=== PATIENT | male | born 1995 | race Two or more races ===

== ENCOUNTER 2018-09-23 14:34 | Observation (INO) | payer OTHER ==
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
[2018-09-23 15:16] LABS: BASOPHILS % (AUTO) 0.7 %; HGB - HEMOGLOBIN 8.2 g/dL (14.0-18.0); MEAN CORPUSCULAR HEMOGLOBIN 28.5 pg (27.0-31.0); MEAN CORPUSCULAR HGB CONC 34.2 g/dL (32.0-36.0); MEAN CORPUSCULAR VOLUME 83.4 fL (80.0-94.0); MEAN PLATELET VOLUME 6.6 fL (7.4-11.4); MONOCYTES % (AUTO) 10.6 %; NEUTROPHILS % (AUTO) 60.7 %; PLT - PLATELET COUNT 409 10^3/uL (130-450); RED BLOOD COUNT 2.89 10^6/uL (4.70-6.10); RED CELL DISTRIBUTION WIDTH 13.2 % (12.0-15.0); WHITE BLOOD COUNT 6.8 x10^3/uL (4.8-10.8)
[2018-09-23 15:19] LABS: ABNORMAL LYMPHS % (MANUAL) 0 %
[2018-09-23 15:25] LABS: ALBUMIN 3.5 g/dL (3.2-5.5); BILIRUBIN,TOTAL 1.1 mg/dL (0.2-1.0); CALCIUM 8.9 mg/dL (8.5-10.3); CREATININE 0.8 mg/dL (0.6-1.2); TOTAL PROTEIN 6.9 g/dL (6.7-8.2)
[2018-09-23 15:34] LABS: BAND NEUTROPHILS % (MANUAL) 2 %; DIFFERENTIAL COMMENT MANUAL DIFFERENTIAL; EOSINOPHILS # (MANUAL) 0.4 10^3/uL (0-0.7); LYMPHOCYTES # (MANUAL) 1.7 10^3/uL (1.5-3.5); LYMPHOCYTES % (MANUAL) 25 %; MONOCYTES # (MANUAL) 0.4 10^3/uL (0.0-1.0); NEUTROPHILS # (MANUAL) 4.3 10^3/uL (1.5-6.6); NEUTROPHILS % (MANUAL) 61 %; PLATELET ESTIMATE, MANUAL NORMAL (130-450,000) (NORMAL); PLATELET MORPHOLOGY NORMAL APPEARANCE (NORMAL); RBC MORPHOLOGY (MULTIPLE) 1+ POLYCHROMASIA (NORMAL)
[2018-09-23 16:18] LABS: INR 1.1 (0.8-1.2); PT - PROTHROMBIN TIME 12.9 secs (9.9-12.6)
[2018-09-23 18:08] LABS: BILIRUBIN,URINE NEGATIVE (NEGATIVE); GLUCOSE, URINE (UA) NEGATIVE (NEGATIVE); KETONES,URINE (UA) NEGATIVE (NEGATIVE); LEUKOCYTE ESTERASE, URINE NEGATIVE (NEGATIVE); NITRITE,URINE NEGATIVE (NEGATIVE); OCCULT BLOOD,URINE NEGATIVE (NEGATIVE); PROTEIN,URINE NEGATIVE (NEGATIVE); UROBILINOGEN,URINE 1 (NORMAL) E.U./dL (NORMAL)
[2018-09-23 18:09] LABS: CLARITY,URINE CLEAR (CLEAR)
[2018-09-23 19:04] LABS: INR 1.1 (0.8-1.2); PT - PROTHROMBIN TIME 12.7 secs (9.9-12.6)
[2018-09-23 19:07] LABS: ALBUMIN 3.2 g/dL (3.2-5.5); ALBUMIN/GLOBULIN RATIO 1.1 (1.0-2.2); BILIRUBIN,TOTAL 0.8 mg/dL (0.2-1.0); CALCIUM 8.7 mg/dL (8.5-10.3); CREATININE 0.9 mg/dL (0.6-1.2)
[2018-09-23] MEDS ORDERED: APIXABAN 5 MG TABLET PO STA (20:13)
[2018-09-23] MEDS ORDERED: ONDANSETRON ODT 4 MG TABLET TL PRN (20:18)
[2018-09-23] MEDS ORDERED: oxyCODONE 5 MG TABLET PO PRN (20:18)
[2018-09-23] MEDS ORDERED: ZOLPIDEM 5 MG TABLET PO PRN (20:18)
[2018-09-23] MEDS ORDERED: HYDROmorphone 1 MG/ML CARPUJECT IVP PRN (20:18)
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
[2018-09-23] MEDS ORDERED: DEXTROSE 5% IV SCH ×2 (21:00→22:00)
[2018-09-23] MEDS ORDERED: ACETYLCYSTEINE IV SCH ×2 (21:00→22:00)
[2018-09-23 21:09] LABS: ABSOLUTE RETICS # AUTO 0.132 10^6/uL (0.020-0.110); MEAN RETIC VALUE 108.2; RED BLOOD COUNT 2.82 10^6/uL (4.70-6.10)
[2018-09-23] MEDS: SODIUM CHLORIDE FLUSH 0.9% 10 ML SYRINGE IVP PRN ×2 (21:18→23:50)
[2018-09-23] MEDS: SODIUM CHLORIDE 0.9% 1,000 ML IV SCH (21:19)
[2018-09-23] MEDS: FAMOTIDINE 20 MG TABLET PO SCH (21:19)
[2018-09-23] MEDS: APIXABAN 5 MG TABLET PO SCH (21:27)
[2018-09-23 21:33] LABS: BILIRUBIN,DIRECT 0.1 mg/dL (0.1-0.5); BILIRUBIN,INDIRECT 0.8 mg/dL; BILIRUBIN,TOTAL 0.9 mg/dL (0.2-1.0)
[2018-09-23 22:50] LABS: HGB - HEMOGLOBIN 8.2 g/dL (14.0-18.0)
[2018-09-23] MEDS ORDERED: guaiFENesin/CODEINE 5 ML UDC PO PRN (23:19)
[2018-09-23] MEDS: CYCLOBENZAPRINE 10 MG TABLET PO PRN (23:29)
[2018-09-24] MEDS: TAMSULOSIN 0.4 MG CAPSULE PO SCH ×2 (00:17→09:19)
[2018-09-24] MEDS ORDERED: diphenhydrAMINE INJ 50 MG/ML VIAL IVP PRN (00:36)
[2018-09-24] MEDS ORDERED: DEXTROSE 5% IV SCH (02:00)
[2018-09-24] MEDS ORDERED: ACETYLCYSTEINE IV SCH (02:00)
[2018-09-24 02:02] LABS: HGB - HEMOGLOBIN 8.1 g/dL (14.0-18.0)
[2018-09-24] MEDS: SODIUM CHLORIDE FLUSH 0.9% 10 ML SYRINGE IVP SCH ×3 (03:28→17:17)
[2018-09-24] MEDS ORDERED: DEXTROSE 5% 1,000 ML IV ONE (03:56)
[2018-09-24 06:51] LABS: BASOPHILS # (AUTO) 0.1 10^3/uL (0.0-0.1); BASOPHILS % (AUTO) 0.9 %; EOSINOPHILS # (AUTO) 0.2 10^3/uL (0.0-0.7); EOSINOPHILS % (AUTO) 2.8 %; LYMPHOCYTES # (AUTO) 1.3 10^3/uL (1.5-3.5); LYMPHOCYTES % (AUTO) 20.7 %; MEAN CORPUSCULAR HEMOGLOBIN 28.6 pg (27.0-31.0); MEAN CORPUSCULAR HGB CONC 32.2 g/dL (32.0-36.0); MEAN CORPUSCULAR VOLUME 88.8 fL (80.0-94.0); MEAN PLATELET VOLUME 7.8 fL (7.4-11.4); MONOCYTES # (AUTO) 0.7 10^3/uL (0.0-1.0); MONOCYTES % (AUTO) 11.6 %; NEUTROPHILS # (AUTO) 4.1 10^3/uL (1.5-6.6); PLT - PLATELET COUNT 305 10^3/uL (130-450); RED BLOOD COUNT 3.16 10^6/uL (4.70-6.10); RED CELL DISTRIBUTION WIDTH 13.3 % (12.0-15.0); WHITE BLOOD COUNT 6.4 x10^3/uL (4.8-10.8)
[2018-09-24 06:57] LABS: ALBUMIN 3.1 g/dL (3.2-5.5); ALBUMIN/GLOBULIN RATIO 0.9 (1.0-2.2); BILIRUBIN,TOTAL 0.9 mg/dL (0.2-1.0); CALCIUM 8.6 mg/dL (8.5-10.3); CREATININE 0.8 mg/dL (0.6-1.2); TOTAL PROTEIN 6.6 g/dL (6.7-8.2)
--- NOTE | 2018-09-24 08:46 | XRAY Report ---
Reason: sob Procedure Date: 09/24/2018 Accession Number: [id number] / [id number] Procedure: XR - Chest 1 View X-Ray CPT Code: 52167 FULL RESULT: EXAM: CHEST RADIOGRAPHY EXAM DATE: 09/24/2018 08:40 AM. CLINICAL HISTORY: Shortness of breath. COMPARISON: None. TECHNIQUE: 1 view. FINDINGS: Lungs/Pleura: No focal opacities evident. No pleural effusion. No pneumothorax. Mediastinum: Within exam limitations, the cardiomediastinal contour is normal. Other: None. IMPRESSION: Normal single view chest. RADIA
[2018-09-24] MEDS ORDERED: POLYETHYLENE GLYCOL 3350 17 GM PACKET PO SCH (09:00)
[2018-09-24] MEDS: CYCLOBENZAPRINE 10 MG TABLET PO PRN (09:13)
[2018-09-24] MEDS: APIXABAN 5 MG TABLET PO SCH (09:15)
[2018-09-24] MEDS: FAMOTIDINE 20 MG TABLET PO SCH (09:15)
[2018-09-24] MEDS: SODIUM CHLORIDE 0.9% 1,000 ML IV SCH (11:22)
[2018-09-24 12:19] LABS: HGB - HEMOGLOBIN 8.5 g/dL (14.0-18.0)
[2018-09-24 12:24] LABS: MUDS CUTOFF CONCENTRATIONS CUTOFF CONC BELOW:
[2018-09-24 12:37] LABS: AMPHETAMINE SCREEN,URINE NEGATIVE (NEGATIVE); BENZODIAZEPINES SCREEN, URINE NEGATIVE (NEGATIVE); COCAINE SCREEN URINE NEGATIVE (NEGATIVE); METHADONE SCREEN, URINE NEGATIVE (NEGATIVE); METHAMPHETAMINES SCREEN, URINE NEGATIVE (NEGATIVE); OPIATE SCREEN, URINE NEGATIVE (NEGATIVE); OXYCODONE SCREEN, URINE NEGATIVE (NEGATIVE); PROPOXYPHENE SCREEN, URINE NEGATIVE (NEGATIVE); TRICYCLIC ANTIDEPRESSANT,URINE NEGATIVE (NEGATIVE)
[2018-09-24] MEDS ORDERED: FERROUS SULFATE 325 MG TABLET PO SCH (17:00)
--- NOTE | 2018-09-24 17:12 | Discharge Plan ---
Discharge Plan Disposition: Home, Self Care Condition: Poor Prescriptions: Apixaban [Eliquis] 2.5 mg PO BID #20 tablet Cyclobenzaprine [Flexeril] 10 mg PO TID PRN #30 tablet PRN Reason: Spasms Ferrous Sulfate 325 mg PO DAILY #15 tablet Tamsulosin [Flomax] 0.4 mg PO DAILY #15 capsule Diet: Regular Activity Restrictions: Activity as Tolerated Shower Restrictions: No (fall precaution) Instruction Topics: Iron tablets capsules extended-release tablets, Cyclobenzaprine tablets, Apixaban oral tablets, Tamsulosin capsules Additional Instructions or Follow Up instructions: You may followup your PCP in one week. Your Lovenox, Methocarbamol medications are changed to Eliquis, Flexeril for reduce the effect side to liver, please hold Tylenol now. Your liver is slightly inflamed on today's labs, your blood counts are better. Avoid all Tylenol/acetaminophen-containing substances. You are also found to have iron deficiency anemia, ferrous sulfate is prescribed to you. Should your symptoms return or worsen, you may present ER, or call 911 or call your PCP for help. No Smoking: If you smoke, Please STOP! Call for help.
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
[2018-09-24 18:32] LABS: INR 1.3 (0.8-1.2); PT - PROTHROMBIN TIME 14.3 secs (9.9-12.6)
[2018-09-24 18:33] LABS: ALBUMIN 3.2 g/dL (3.2-5.5); ALBUMIN/GLOBULIN RATIO 0.9 (1.0-2.2); CALCIUM 8.8 mg/dL (8.5-10.3); CREATININE 0.8 mg/dL (0.6-1.2); TOTAL PROTEIN 6.7 g/dL (6.7-8.2)
[2018-09-24 20:10] VITALS: BP 102/70
[2018-09-26 14:31] LABS: HEPATITIS A IGM NON-REACTIVE (NON-REACTIVE); HEPATITIS B CORE ANTIBODY IGM NON-REACTIVE (NON-REACTIVE); HEPATITIS B SURFACE ANTIGEN NON-REACTIVE (NON-REACTIVE); HEPATITIS C ANTIBODY NON-REACTIVE (NON-REACTIVE)
== END 2018-09-24 20:25 | disposition home or self-care (01) ==
LOC: ED 14:34 → MS3 20:18
PROVIDERS: ADMIT Family Medicine; ATTEND Nurse Practitioner Gerontology
DX: K72.00 Acute and subacute hepatic failure without coma (principal); D62 Acute posthemorrhagic anemia; S75.092 Other specified injury of femoral artery, left leg; S82.202D Unspecified fracture of shaft of left tibia, subsequent encounter for closed fracture with routine healing; S82.402D Unspecified fracture of shaft of left fibula, subsequent encounter for closed fracture with routine healing; S82.65XD Nondisplaced fracture of lateral malleolus of left fibula, subsequent encounter for closed fracture with routine healing; V29.9XXD Motorcycle rider (driver) (passenger) injured in unspecified traffic accident, subsequent encounter; N20.0 Calculus of kidney
CPT/HCPCS: 36415; 71045; 80053; 80074; 81003; 82247; 82248; 83010; 83540; 83605; 83615; 83690; 84466; 84484; 85014; 85018; 85025; 85044; 85610; 86850; 86880; 86900; 86901; 87040; 93005; 96365; 96366; 96375; 99284; A9270; G0378; J0132; J1170; J3490; 80306; 80307; 81001; 82274; 87086

== ENCOUNTER 2019-07-12 20:45 | Emergency (ER) | payer OTHER ==
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
[2019-07-12 22:35] VITALS: BP 124/83
== END 2019-07-12 22:38 | disposition home or self-care (01) ==
LOC: ED 20:45
DX: M96.831 Postprocedural hemorrhage of a musculoskeletal structure following other procedure (principal); Z87.891 Personal history of nicotine dependence
CPT/HCPCS: 99281; 99284